=== PATIENT | female | born 1935 | race Caucasian/White ===

== ENCOUNTER → 2022-03-23 | Outpatient (CLI) | payer MEDICARE | LOC: M RAD 07:32 | PROVIDERS: ATTEND Psychiatry & Neurology Neurology | DX: G31.84 Mild cognitive impairment of uncertain or unknown etiology (principal); D51.8 Other vitamin B12 deficiency anemias ==

== ENCOUNTER → 2023-12-04 | Outpatient (CLI) | payer MEDICARE | LOC: M PLAIMG 10:56 | PROVIDERS: ATTEND Psychiatry & Neurology Neurology | DX: S06.5X0D Traumatic subdural hemorrhage without loss of consciousness, subsequent encounter (principal); G31.84 Mild cognitive impairment of uncertain or unknown etiology; W18.30XD Fall on same level, unspecified, subsequent encounter ==